=== PATIENT | female | born 1960 | race African-American/Black ===

== ENCOUNTER 2025-01-01 22:14 | Inpatient (IN) | payer BC, MEDICAID ==
[~2025-01-01] VITALS: Ht 157.5 cm; Wt 75.7 kg
[2025-01-01 22:20] VITALS: O2SAT 98
[2025-01-01] MEDS: SODIUM CHLORIDE 0.9% 1,000 ML IV ONE (23:49)
[2025-01-01] MEDS: POLYETHYLENE GLYCOL 3350 (17GM) 1 DOSE PACK PO ONE (23:51)
[2025-01-02 00:13] LABS: BASOPHILS % 0.4 % (0.0-2.0); EOSINOPHILS % 2.4 % (0.0-5.0); HEMATOCRIT. 33.6 % (36.0-48.0); HEMOGLOBIN. 11.2 g/dL (12.0-16.0); LYMPHOCYTES % 26.4 % (20.0-50.0); MEAN PLATELET VOLUME 9.7 fl (7.4-10.4); MONOCYTES % 8.8 % (2.0-8.0); NEUTROPHILS % 62.0 % (40.0-76.0); PLATELET 174 x1000/uL (130-400); RED BLOOD CELL COUNT 3.99 mill/uL (4.2-5.4); RED CELL DISTRIBUTION WIDTH 14.9 % (11.6-14.6)
[2025-01-02 00:20] LABS: CREATININE 2.3 mg/dL (0.6-1.0); UREA NITROGEN BLOOD 18 mg/dL (9-23)
[2025-01-02 00:22] LABS: ASPARTATE AMINOTRANSFERASE 36 IU/L (<34); BILIRUBIN DIRECT < 0.1 mg/dL (<=3.0)
[2025-01-02 00:23] LABS: BILIRUBIN TOTAL 0.3 mg/dL (0.1-1.0); PROTEIN TOTAL 7.3 g/dL (6.0-8.3)
[2025-01-02] MEDS: NA PHOS,M-B/NA PHOS,DI-BA ENEMA 118ML PR ONE (01:34)
[2025-01-02] MEDS: LACTULOSE 20G/30ML UDC PO ONE (03:22)
[2025-01-02 04:00] VITALS: BP 141/72; PULSE 115; RESP 20; TEMP 36.1; O2SAT 100
[2025-01-02 05:00] VITALS: BP 141/72; PULSE 115; RESP 20; TEMP 36.0844
[2025-01-02] MEDS ORDERED: ONDANSETRON HCL 4MG/2ML INJ IV PRN (05:30)
[2025-01-02] MEDS ORDERED: DEXTROSE 50% WATER 50ML SYRINGE IV PRN (05:30)
[2025-01-02] MEDS: LACTULOSE 20G/30ML UDC PO SCH (05:52)
[2025-01-02] MEDS: GABAPENTIN 300MG CAPSULE PO SCH (05:52)
[2025-01-02] MEDS: SODIUM CHLORIDE 0.9% 1,000 ML IV SCH (05:52)
[2025-01-02] MEDS: BLOOD SUGAR DIAGNOSTIC STRIP TEST SCH (07:58)
[2025-01-02 08:00] VITALS: BP 130/76; PULSE 109; RESP 20; TEMP 36.3; O2SAT 100
[2025-01-02] MEDS: AMLODIPINE 10MG TABLET PO SCH (09:04)
[2025-01-02] MEDS: SERTRALINE HCL 100MG TABLET PO SCH (09:04)
[2025-01-02] MEDS: INSULIN LISPRO 100 UNITS/ML SUBCUT SCH (09:13)
[2025-01-02] MEDS: ACETAMINOPHEN 325MG TABLET PO PRN (09:17)
[2025-01-02] MEDS: ENOXAPARIN 30MG/0.3ML SYR SUBCUT SCH (09:19)
[2025-01-02 12:00] VITALS: BP 136/66; PULSE 109; RESP 20; TEMP 36.6; O2SAT 100
[2025-01-02] MEDS ORDERED: SORBITOL 70% SOLN 30ML PO NR (12:30)
[2025-01-02] MEDS: INSULIN GLARGINE 100 UNITS/ML SUBCUT NR (13:25)
[2025-01-02 16:00] VITALS: BP 131/65; PULSE 107; RESP 20; TEMP 36.7; O2SAT 100
[2025-01-02] MEDS ORDERED: NORT10SO PO (16:23)
[2025-01-02] MEDS ORDERED: SERT-112 PO (16:23)
[2025-01-02] MEDS ORDERED: SIMV-43 PO (16:23)
[2025-01-02] MEDS ORDERED: LOSA-20 PO (16:23)
[2025-01-02] MEDS: SORBITOL 70% SOLN 30ML PO NR (18:12)
[2025-01-02] MEDS: PNEUMOCOCCAL 20-VAL CONJ-DIP CRM 0.5ML IM ONE (18:20)
[2025-01-02 19:30] LABS: PLATELET 156 x1000/uL (130-400); RED BLOOD CELL COUNT 3.79 mill/uL (4.2-5.4); RED CELL DISTRIBUTION WIDTH 15.1 % (11.6-14.6)
[2025-01-02 19:45] LABS: CREATININE 2.1 mg/dL (0.6-1.0); TRIGLYCERIDE 90.0 mg/dL (0-150); UREA NITROGEN BLOOD 12.0 mg/dL (9-23)
[2025-01-02 19:46] LABS: LDL CHOLESTEROL 57.0 mg/dL (5-100)
[2025-01-02 20:00] VITALS: BP 123/69; PULSE 99; RESP 20; TEMP 36.2; O2SAT 97
[2025-01-02] MEDS: NORTRIPTYLINE HCL 25MG CAPSULE PO SCH (21:41)
[2025-01-02] MEDS: ATORVASTATIN CALCIUM 20MG TABLET PO SCH (21:41)
[2025-01-02] MEDS: INSULIN GLARGINE 100 UNITS/ML SUBCUT SCH (21:47)
[2025-01-03] VITALS: BP 142/81; PULSE 104; RESP 20; TEMP 35.7; O2SAT 98
[2025-01-03 04:00] VITALS: BP 138/66; PULSE 101; RESP 20; TEMP 36.1; O2SAT 100
[2025-01-03 08:00] VITALS: BP 136/76; PULSE 102; RESP 19; TEMP 36.6; O2SAT 94
[2025-01-03 12:00] VITALS: BP 115/66; PULSE 100; RESP 18; TEMP 36.4; O2SAT 95
[2025-01-03 16:00] VITALS: BP 132/70; PULSE 99; RESP 18; TEMP 36.6; O2SAT 97
[2025-01-03 20:00] VITALS: BP 138/79; PULSE 110; RESP 20; TEMP 36.1; O2SAT 95
[2025-01-04] VITALS: BP 153/83; PULSE 104; RESP 20; TEMP 35.9; O2SAT 95
[2025-01-04 04:00] VITALS: BP 142/74; PULSE 105; RESP 20; TEMP 36.1; O2SAT 96
[2025-01-04 08:00] VITALS: BP 133/71; PULSE 104; RESP 19; TEMP 36.4; O2SAT 98
[2025-01-04 12:00] VITALS: BP 126/70; PULSE 105; RESP 19; TEMP 36.5; O2SAT 99
[2025-01-04 15:41] LABS: CLARITY URINE CLEAR (CLEAR); GLUCOSE URINE 1+ (NEGATIVE); KETONES URINE NEGATIVE (NEGATIVE); LEUKOCYTE ESTERASE URINE NEGATIVE (NEGATIVE); NITRITE URINE NEGATIVE (NEGATIVE); OCCULT BLOOD URINE NEGATIVE (NEGATIVE); PH URINE 5.5 (4.5-8.0); PROTEIN URINE 1+ (NEGATIVE); SPECIFIC GRAVITY URINE 1.012 (1.005-1.030); UROBILINOGEN URINE 0.2 E.U./dL (0.2-1.0)
[2025-01-04 16:00] VITALS: BP 132/68; PULSE 101; RESP 17; TEMP 36.5; O2SAT 96
[2025-01-04 16:12] LABS: COLOR URINE STRAW (YELLOW)
[2025-01-04 16:29] LABS: BACTERIA URINE TRACE; RBC URINE NONE SEEN /hpf (0-2); SQUAMOUS EPITHELIAL CELL URINE 1+ /lpf (RARE/1+); WBC URINE 0-2 /hpf (0-2)
[2025-01-04 16:30] LABS: MUCUS URINE TRACE /lpf (< = 2+)
[2025-01-04 20:00] VITALS: BP 161/83; PULSE 109; RESP 18; TEMP 37.1; O2SAT 97
[2025-01-05] VITALS: BP 132/72; PULSE 101; RESP 18; TEMP 37.1; O2SAT 95
[2025-01-05 04:00] VITALS: BP 159/81; PULSE 104; RESP 18; TEMP 36.3; O2SAT 98
[2025-01-05 08:00] VITALS: BP 123/72; PULSE 97; RESP 18; TEMP 36.4; O2SAT 95
[2025-01-05 10:21] VITALS: BP 123/72; PULSE 97; RESP 18; TEMP 97.7
== END 2025-01-05 11:04 | disposition home or self-care (01) | DRG 391 ==
LOC: ER 22:14 → 6EST 01-02 03:13 → EDBEDREQ 01-02 03:20 → EDBEDREQTM 01-02 03:20 → ENRESERV 01-02 03:52
PROVIDERS: ADMIT Internal Medicine; ATTEND Internal Medicine
DX: K59.00 Constipation, unspecified (principal); N17.0 Acute kidney failure with tubular necrosis; E11.65 Type 2 diabetes mellitus with hyperglycemia; I10 Essential (primary) hypertension; G89.29 Other chronic pain; E78.00 Pure hypercholesterolemia, unspecified; M54.50 Low back pain, unspecified
CPT/HCPCS: 36415; 74176; 80048; 80061; 80076; 81003; 82962; 83036; 83605; 84145; 85025; 85027; 90732; 93005; 99285; A4606; J1650; J1815; J7030